=== PATIENT | male | born 1995 | race Two or more races ===

== ENCOUNTER 2018-04-11 13:56 | Inpatient (IN) | payer OTHER ==
[2018-04-11] VITALS (8 sets, daily range): BP systolic 119–152; BP diastolic 52–73
[~2018-04-11] VITALS: Ht 177.8 cm; Wt 64.4 kg
--- NOTE | 2018-04-11 14:10 | NUR ---
AAOX3, BB POLICE OFFICERS FROM [facility] FOR NAUSEA/VOMITING X TODAY THROAT PAIN DUE TO VOMITING. SKIN IS WARM AND DRY. AWAITING MD FOR EVAL.
[2018-04-11] MEDS ORDERED: ONDANSETRON HCL/PF 4 MG/2 ML VIAL ONE (14:26)
[2018-04-11] MEDS ORDERED: ONDANSETRON HCL/PF - ER 4 MG/2 ML VIAL IV ONE (14:30)
[2018-04-11] MEDS ORDERED: IV NS 0.9% 1,000 ML BAG IV ONE ×2 (14:30→15:30)
[2018-04-11 14:35] LABS: BASOPHILS % (AUTO) 0.3 % (0.0-2.0); EOSINOPHILS % (AUTO) 0.1 % (0.0-6.0); HEMATOCRIT 48 % (39-51); HEMOGLOBIN 15.9 g/dL (13.5-17.5); LYMPHOCYTES # (AUTO) 0.7 /CMM (0.8-4.8); LYMPHOCYTES % (AUTO) 5.9 % (20.0-44.0); MEAN CORPUSCULAR HGB CONC 33 g/dl (31.0-36.0); MEAN CORPUSCULAR VOLUME 84 fL (80-96); MONOCYTES # (AUTO) 0.4 /CMM (0.1-1.30); NEUTROPHILS # (AUTO) 10.6 /CMM (1.8-8.9); NEUTROPHILS % (AUTO) 90.7 % (43.0-81.0); PLATELET COUNT (AUTO) 312 /CMM (150-450); RDW COEFFICIENT OF VARIATION 12.4 (11.5-15.0); RED BLOOD CELL COUNT(AUTO) 5.66 MIL/uL (4.5-6.0); WHITE BLOOD COUNT (AUTO) 11.7 K/uL (4.3-11.0)
[2018-04-11 14:51] LABS: ALBUMIN 4.3 g/dL (3.4-5.0); BILIRUBIN,DIRECT 0.2 mg/dL (0.0-0.2); BILIRUBIN,TOTAL 0.8 mg/dL (0.2-1.0); CALCIUM, SERUM 10.1 mg/dL (8.5-10.1); CREATININE 1.3 mg/dL (0.6-1.3); POTASSIUM 5.6 mmol/L (3.5-5.1); TOTAL PROTEIN, SERUM 7.8 g/dL (6.4-8.2)
[2018-04-11] MEDS ORDERED: INSULIN REGULAR, HUMAN 100 UNIT/ML 10 ML VIAL ONE (15:54)
[2018-04-11 16:00] LABS: APPEARANCE,URINE Clear (CLEAR); BILIRUBIN,URINE SMALL (NEGATIVE); BLOOD, URINE Negative Ery/uL (NEGATIVE); COLOR,URINE Yellow (YELLOW); KETONES,URINE >=160 (NEGATIVE); LEUKOCYTE ESTERASE ,URINE Negative (NEGATIVE); NITRITE, URINE Negative (NEGATIVE); PH,URINE 5.5 (5.0-8.0); PROTEIN,URINE Negative (NEGATIVE); UGLUCOSE 500 MG/DL mg/dL (NEGATIVE); UROBILINOGEN,URINE 0.2 EU/dL (0.2)
[2018-04-11] MEDS ORDERED: INSULIN REGULAR, HUMAN 100 UNIT/ML 10 ML VIAL IV ONE (16:00)
--- NOTE | 2018-04-11 16:03 | NUR ---
CALLED [employer] SEAMLESS TUBE MILL OPERATOR WAS PAGED.
[2018-04-11 16:08] LABS: BACTERIA,URINE Few /HPF (None Seen); RBC,URINE 0-2 /HPF (0-2); SQUAMOUS EPITHELIAL CELL,UR Few /HPF (None Seen); WBC,URINE 0-2 /HPF (0-3)
[2018-04-11 16:14] LABS: ABG BASE EXCESS -12.7 mmol/L; ABG OXYGEN SATURATION 68.4 % (92.0-98.5); ABG PCO2 36.3 mmHg (35.0-45.0); ABG PH 7.211 (7.350-7.450); ABG PO2 41.4 mmHg (75.0-100.0); COHb 0.6 % (0.5-1.5); MetHb 0.6 % (0.0-1.5); O2Hb 67.6 % (94.0-97.0); SITE, ABG Right Brachial; VENT MODE, BG RA
[2018-04-11] MEDS ORDERED: INSULIN REGULAR, HUMAN 100 UNIT in IV NS 0.9% 99 ML IV STA ×2 (16:24)
--- NOTE | 2018-04-11 16:44 | NUR ---
Report given to [facility]
[2018-04-11] MEDS ORDERED: IV NS 0.9% 1,000 ML BAG IV PRN (17:00)
--- NOTE | 2018-04-11 17:07 | NUR ---
INSULIN DRIP WAS SENT TO ICU BY PHARMACY. SHERRY, COARSE WIRE DRAWER WILL START THE INSULIN DRIP.
--- NOTE | 2018-04-11 17:15 | NUR ---
RESEARCH ASSISTANT RECEIVED PATIENT AWAKE ON [place]N FROM ER ALERT ORIENTED X 3 ASKING FOR FOOD BECAUSE HE'S HUNGRY PLACED ON HIS COMFORTABLE POSITION STARTED INSULIN DRIP RIGHT AWAY 1 LITER BOLUS CONTINUED FROM ER MONITORED CLOSELY Addendum: 04/11/18 at 1846 by SHERRY CANNON RN PATIENT CAME FROM ASSISTED ESCORTED BY 2 POLICE OFFICERS HANDCUFFED TO THE BED MONITORED CLOSELY BY POLICE OFFICERS WELL SINUS TACHYCARDIA NOTED BLOOD PRESSURE ELEVATED NOTED
[2018-04-11] MEDS ORDERED: ONDANSETRON HCL/PF 4 MG/2 ML VIAL IVP PRN (17:30)
[2018-04-11] MEDS ORDERED: ACETAMINOPHEN 325 MG TABLET PO PRN (17:30)
[2018-04-11] MEDS ORDERED: INSULIN REGULAR, HUMAN 100 UNIT in IV NS 0.9% 99 ML IV PRN ×2 (17:30)
[2018-04-11] MEDS ORDERED: Z GUARD REMEDY 2 OZ OINT TP PRN (17:30)
[2018-04-11] MEDS ORDERED: MAG HYDROX/AL HYDROX/SIMETH 30 ML UDC PO PRN (17:30)
[2018-04-11] MEDS ORDERED: MAGNESIUM HYDROXIDE 30 ML UDC PO PRN (17:30)
[2018-04-11] MEDS ORDERED: DEXTROSE 50%-WATER 50 ML DISP.SYRIN IV PRN (18:00)
[2018-04-11] MEDS ORDERED: INSULIN REGULAR, HUMAN 100 UNIT/ML 3 ML VIAL SQ PRN (18:00)
[2018-04-11] MEDS ORDERED: *INSULIN REGULAR(HUMULIN R)HUM 100 UNIT/ML VIAL SQ PRN (18:00)
[2018-04-11] MEDS: BLOOD SUGAR DIAGNOSTIC 1 EACH STRIP IN SCH ×6 (18:01→23:06)
[2018-04-11] MEDS: IV NS 0.9% 1,000 ML IV PRN (18:22)
[2018-04-11] MEDS: ZOLPIDEM TARTRATE 5 MG TABLET PO PRN (21:01)
[2018-04-11] MEDS: HYDROCODONE/APAP 5/325MG 1 EACH TABLET PO PRN (21:02)
[2018-04-11 22:24] LABS: CALCIUM, SERUM 7.9 mg/dL (8.5-10.1); CREATININE 1.4 mg/dL (0.6-1.3); POTASSIUM 4.6 mmol/L (3.5-5.1)
[2018-04-12] VITALS (25 sets, daily range): BP systolic 90–153; BP diastolic 39–79
[2018-04-12] MEDS: BLOOD SUGAR DIAGNOSTIC 1 EACH STRIP IN SCH ×18 (00:18→21:07)
[2018-04-12] MEDS: IV NS 0.9% 1,000 ML IV PRN ×2 (00:56→11:49)
--- NOTE | 2018-04-12 01:26 | NUR ---
RN NOTES BLOOD SUGAR IS WITHIN RANGE OF 140-180 FOR 4 CONSECUTIVE TIMES. PER PROTOCOL, CONTINUE TO BLOOD SUGAR CHECK EVERY 2 HOURS IF BLOOD SUGAR IS > 140MG/DL.
[2018-04-12 02:30] LABS: BASOPHILS % (AUTO) 0.3 % (0.0-2.0); EOSINOPHILS % (AUTO) 0.2 % (0.0-6.0); HEMATOCRIT 43 % (39-51); HEMOGLOBIN 13.9 g/dL (13.5-17.5); LYMPHOCYTES # (AUTO) 1.2 /CMM (0.8-4.8); LYMPHOCYTES % (AUTO) 10.1 % (20.0-44.0); MEAN CORPUSCULAR HGB CONC 33 g/dl (31.0-36.0); MEAN CORPUSCULAR VOLUME 87 fL (80-96); MONOCYTES # (AUTO) 0.9 /CMM (0.1-1.30); MONOCYTES % (AUTO) 7.4 % (2.0-12.0); NEUTROPHILS # (AUTO) 9.8 /CMM (1.8-8.9); PLATELET COUNT (AUTO) 282 /CMM (150-450); RDW COEFFICIENT OF VARIATION 13.2 (11.5-15.0)
[2018-04-12 02:40] LABS: ALBUMIN 3.4 g/dL (3.4-5.0); BILIRUBIN,TOTAL 0.6 mg/dL (0.2-1.0); CALCIUM, SERUM 7.8 mg/dL (8.5-10.1); CREATININE 1.5 mg/dL (0.6-1.3); MAGNESIUM 1.6 mg/dL (1.8-2.4); PHOSPHORUS 3.2 mg/dL (2.5-4.9); POTASSIUM 4.3 mmol/L (3.5-5.1); TOTAL PROTEIN, SERUM 6.6 g/dL (6.4-8.2)
[2018-04-12 06:50] LABS: CALCIUM, SERUM 8.1 mg/dL (8.5-10.1); CREATININE 1.3 mg/dL (0.6-1.3); POTASSIUM 4.1 mmol/L (3.5-5.1)
--- NOTE | 2018-04-12 07:00 | NUR ---
RN NOTES RECEIVED PT ON BED, A/Ox4, ON RA ,RESPIRATION EVEN AND UNLABORED , NO SOB NOTED, ON TELE SR, HR IN 70'S , PT IS NPO AT THIS TIME, NS AT 150CC/HR AND INSULIN GTT AT 2 UNITS /HR RUNNING VIA R HAND IV SITE G 22, NO COMPLICATION NOTED, IV SITE CDI, SR UP x3, CALL LIGHT WITHIN EASY REACH , CALL LIGHT WITHIN EASY REACH, CONTINUE TO MONITOR PT CLSOELY .
[2018-04-12 07:58] LABS: ABG BASE EXCESS -8.6 mmol/L; ABG OXYGEN SATURATION 96.9 % (92.0-98.5); ABG PCO2 34.7 mmHg (35.0-45.0); ABG PH 7.303 (7.350-7.450); ABG PO2 100.5 mmHg (75.0-100.0); AaDO2 7.7 mmHg; COHb 0.3 % (0.5-1.5); MetHb 0.7 % (0.0-1.5); O2Hb 95.9 % (94.0-97.0); SITE, ABG Right Radial; VENT MODE, BG ROOM AIR
[2018-04-12] MEDS: Magnesium 1GM/D5W 100ML PREMIX 100 ML IV SCH ×2 (08:05→09:11)
[2018-04-12 10:46] LABS: CREATININE 1.3 mg/dL (0.6-1.3); POTASSIUM 3.7 mmol/L (3.5-5.1)
--- NOTE | 2018-04-12 13:00 | NUR ---
RN NOTES DR MISHRA NOTIFED REGARDING LAST 3 BLOOD SUGAR , NEW ORDER RECEIVED , CONTINUE TO MONITOR
[2018-04-12] MEDS: IV D5/0.45 NACL 1,000 ML IV PRN ×2 (13:20→20:56)
[2018-04-12] MEDS ORDERED: INSULIN GLARGINE, 100 UNIT/ML CARTRIDGE SQ ONE (13:30)
[2018-04-12 15:43] LABS: CALCIUM, SERUM 7.6 mg/dL (8.5-10.1); CREATININE 1.2 mg/dL (0.6-1.3); POTASSIUM 3.5 mmol/L (3.5-5.1)
--- NOTE | 2018-04-12 16:17 | NUR ---
RN NOTES DR BYRNE NOTIFED REGARDING BLOOD GLUCLOS RESULTS , NEW ORDER GIVEN , PT STABLE .
[2018-04-12] MEDS ORDERED: DEXTROSE 50%-WATER 50 ML DISP.SYRIN IV PRN (16:30)
[2018-04-12] MEDS: INSULIN REGULAR, HUMAN 100 UNIT/ML 3 ML VIAL SQ PRN (17:01)
--- NOTE | 2018-04-12 18:07 | NUR ---
RN NOTES VSS STABLE , PT DIAMOND ANY DISTRESS , IVF D51/2NS AT 150CC/HR RUNNING VIA R HAND IV SITE , SR UP x3, CALL LIGHT WITHIN EASY REACH, BED LOCKED AND IN LOWEST POSITION ,WILL ENDORSE TO VISCOSE CELLAR WORKER NURSE FOR SOHEILA
--- NOTE | 2018-04-12 19:00 | NUR ---
RN INITIAL NOTES RECEIVED THE PATIENT AWAKE ON BED, A/O X4. ON ROOM AIR, SATURATING WELL, NO S/S OF RESP DISTRESS. SR ON THE MONITOR, HR 60-70'S. PT IS CONTINENT, ABLE TO USE THE URINAL. RIGHT HAND 22G WITH D5 1/2NS @ 150MLS/HR, NO S/S OF INFILTRATION/INFECTION, DRESSING CDI. BED LOW AND LOCKED, SIDERAILS UP, CALL LIGHT WITHIN REACH. WILL MONITOR
[2018-04-12 19:44] LABS: CALCIUM, SERUM 7.6 mg/dL (8.5-10.1); CREATININE 1.2 mg/dL (0.6-1.3); POTASSIUM 3.3 mmol/L (3.5-5.1)
--- NOTE | 2018-04-12 20:58 | NUR ---
RN NOTES NOTIFIED ON-CALL DR VIZCARRA THAT PATIENT POTASSIUM IS 3.3; HE ORDERED 40MEQ POTASSIUM PO ONE TIME TO BE GIVEN.
[2018-04-12] MEDS ORDERED: POTASSIUM CHLORIDE 20 MEQ TAB.PRT.SR PO ONE (21:00)
[2018-04-12] MEDS: NICOTINE PATCH (14MG) 14 MG PATCH.TD24 TD SCH (21:09)
[2018-04-12] MEDS: ZOLPIDEM TARTRATE 5 MG TABLET PO PRN (21:09)
[2018-04-12] MEDS: *INSULIN REGULAR(HUMULIN R)HUM 100 UNIT/ML VIAL SQ PRN (21:09)
[2018-04-12 23:29] LABS: CALCIUM, SERUM 7.5 mg/dL (8.5-10.1); CREATININE 1.2 mg/dL (0.6-1.3); POTASSIUM 3.6 mmol/L (3.5-5.1)
[2018-04-12 23:31] LABS: MAGNESIUM 1.8 mg/dL (1.8-2.4); PHOSPHORUS 2.4 mg/dL (2.5-4.9)
[2018-04-13] VITALS (21 sets, daily range): BP systolic 102–142; BP diastolic 53–87
[2018-04-13] MEDS: IV D5/0.45 NACL 1,000 ML IV PRN ×3 (03:48→16:12)
[2018-04-13 04:27] LABS: POTASSIUM 3.7 mmol/L (3.5-5.1)
--- NOTE | 2018-04-13 06:00 | NUR ---
RN CLOSING NOTES PT REMAINS STABLE OF THE MOMENT. ALL DUE MEDS GIVEN. WILL ENDORSE SOHEILA TO AM RN
--- NOTE | 2018-04-13 07:00 | NUR ---
RN NOTE RECEIVED PT ON BED, A/Ox4, ON RA, RESPIRATION EVEN AND UNLABORED, DIAMOND ANY DISTRESS AT THIS TIME , ON TELE HR IN 80'S ,SR , R HAND IV SITE G 22 CDI WITH D51/2NS AT 150CC/HR RUNNING, PT IS ABLE TO USE URINAL , SR UP x3, CALL LIGHT WITHIN EASY REACH, BED LOCKED AND IN LOWEST POSITION, CONTINUE TO MONITOR PT CLOSELY.
[2018-04-13] MEDS: BLOOD SUGAR DIAGNOSTIC 1 EACH STRIP IN SCH ×2 (07:30→11:35)
[2018-04-13] MEDS: HYDROCODONE/APAP 5/325MG 1 EACH TABLET PO PRN (07:48)
[2018-04-13] MEDS: NICOTINE PATCH (14MG) 14 MG PATCH.TD24 TD SCH (08:16)
[2018-04-13] MEDS: *INSULIN REGULAR(HUMULIN R)HUM 100 UNIT/ML VIAL SQ PRN ×2 (09:08→21:06)
[2018-04-13] MEDS: INSULIN REGULAR, HUMAN 100 UNIT/ML 3 ML VIAL SQ PRN (11:34)
--- NOTE | 2018-04-13 12:00 | NUR ---
RN NOTES YANELIS SOIL CONSERVATION AIDE NOTIFED REGARDING URINE OUT PUT. CONTINUE TO MONITOR.
[2018-04-13] MEDS ORDERED: CARB200T PO (12:20)
[2018-04-13] MEDS ORDERED: ARIP30TA3 PO (12:20)
[2018-04-13] MEDS ORDERED: BENA20TA9 PO (12:20)
[2018-04-13] MEDS ORDERED: RISP0.5T20 PO (12:20)
[2018-04-13] MEDS ORDERED: INSU100V27 SQ (12:20)
[2018-04-13] MEDS ORDERED: DIPH50CA4 PO (12:20)
[2018-04-13] MEDS ORDERED: ALBU18HF2 INH (12:20)
[2018-04-13] MEDS ORDERED: LAMO100T2 PO (12:20)
[2018-04-13] MEDS ORDERED: IBUP-1955 PO (12:20)
[2018-04-13] MEDS ORDERED: BLOO-668 IN (12:20)
[2018-04-13] MEDS ORDERED: GUAI-717 PO (12:20)
[2018-04-13] MEDS ORDERED: DOCU250C14 PO (12:20)
[2018-04-13] MEDS ORDERED: CYCL5TAB PO (12:20)
[2018-04-13] MEDS ORDERED: INSU100I26 SQ (12:20)
--- NOTE | 2018-04-13 13:00 | NUR ---
RN NOTES PT STABLE , OUT OF BED TO VOID AND USES URINAL , VSS STABLE , NO DISTRESS NOTED .
--- NOTE | 2018-04-13 15:12 | NUR ---
RN NOTES PT STATED HE FEELS SHAKY , BG=67, ORANG JUICE GIVEN , YANELIS DETAIL SERGEANT NOTIFED , CONTINUE TO MONITOR
[2018-04-13] MEDS ORDERED: IBUPROFEN 600 MG TABLET PO PRN (15:30)
[2018-04-13] MEDS ORDERED: ALBUTEROL FS 2.5 MG/3 ML VIAL.NEB NEB PRN (15:30)
--- NOTE | 2018-04-13 15:30 | NUR ---
RN NOTES BG =172, MAJOR HILARIO AUTOMOTIVE BUYER NOTIFED, NO COVERAGE GIVEN PER AUTOMOTIVE BUYER ORDER AT THIS TIME , PT IS A/OX4, NO DISTRESS NOTED, CONTINUE TO MONITOR .
[2018-04-13 15:44] LABS: URINE SODIUM, RANDOM 91 mmol/l (40-220)
[2018-04-13] MEDS ORDERED: GUAIFENESIN/D-METHORPHAN HB 5 ML UDC PO PRN (16:00)
[2018-04-13] MEDS: risperiDONE 0.25 MG TABLET PO SCH (16:07)
[2018-04-13] MEDS: LamoTRIgine 100 MG TABLET PO SCH (16:07)
[2018-04-13] MEDS ORDERED: DEXTROSE 50%-WATER 50 ML DISP.SYRIN IV PRN (16:30)
[2018-04-13] MEDS ORDERED: LORAZEPAM INJ 2 MG/ML VIAL IV PRN (16:30)
--- NOTE | 2018-04-13 16:30 | NUR ---
RN NOTES REPORT GIVEN TO HELEN MARCANO , AND PT TRANSFERRED TO ROOM 114-2 GRIFFIN STATUS IN STABLE CONDITION WITH ALL BELONGINGS .
--- NOTE | 2018-04-13 16:40 | NUR ---
RN NOTES RECEIVED PT FROM ICU. A&0X3, ON ROOM AIR NO SOB OR DISTRESS NOTED. SR ON THE TELE PABLO WITH PVCS HR 82. RH 22G IV SITE INTACT WITH D5 1/2NS AT 150ML/HR. BED LOCKED AND IN LOWEST POSITION, CALL LIGHT WITHIN REACH, SIDE RAILS UPX3, WILL CONT TO PABLO.
[2018-04-13] MEDS ORDERED: CYCLOBENZAPRINE 10 MG TABLET PO PRN (17:00)
[2018-04-13] MEDS: BLOOD SUGAR DIAGNOSTIC 1 EACH STRIP VI SCH ×2 (17:15→21:05)
[2018-04-13 17:42] LABS: OSMOLALITY,URINE 624 mOS/kg (340-1090)
[2018-04-13 17:56] LABS: BASOPHILS % (AUTO) 0.3 % (0.0-2.0); EOSINOPHILS % (AUTO) 1.9 % (0.0-6.0); HEMATOCRIT 41 % (39-51); HEMOGLOBIN 13.9 g/dL (13.5-17.5); LYMPHOCYTES # (AUTO) 0.6 /CMM (0.8-4.8); LYMPHOCYTES % (AUTO) 11.7 % (20.0-44.0); MEAN CORPUSCULAR HGB CONC 34 g/dl (31.0-36.0); MEAN CORPUSCULAR VOLUME 86 fL (80-96); MONOCYTES # (AUTO) 0.4 /CMM (0.1-1.30); MONOCYTES % (AUTO) 8.8 % (2.0-12.0); NEUTROPHILS # (AUTO) 3.9 /CMM (1.8-8.9); NEUTROPHILS % (AUTO) 77.3 % (43.0-81.0); PLATELET COUNT (AUTO) 239 /CMM (150-450); RDW COEFFICIENT OF VARIATION 12.9 (11.5-15.0); RED BLOOD CELL COUNT(AUTO) 4.81 MIL/uL (4.5-6.0); WHITE BLOOD COUNT (AUTO) 5.1 K/uL (4.3-11.0)
[2018-04-13] MEDS: CARBAMAZEPINE 200 MG TABLET PO SCH (17:57)
[2018-04-13 18:08] LABS: CALCIUM, SERUM 8.3 mg/dL (8.5-10.1); POTASSIUM 4.1 mmol/L (3.5-5.1)
--- NOTE | 2018-04-13 20:00 | NUR ---
RN GRIFFIN - NOTES - RECEIVED PT AWAKE IN BED, A/O X4. ON ROOM AIR, SATURATING WELL, NO S/S OF RESP DISTRESS. SR ON THE MONITOR, HR 60-70'S. PT IS CONTINENT, ABLE TO USE THE URINAL. RIGHT HAND 22G WITH D5 1/2NS @ 150MLS/HR, NO S/S OF INFILTRATION/INFECTION, DRESSING CDI. BED LOW AND LOCKED, SIDERAILS UP, CALL LIGHT WITHIN REACH. WILL MONITOR
[2018-04-13] MEDS: diphenhydrAMINE HCL 50 MG CAPSULE PO SCH (21:04)
[2018-04-14] VITALS: BP 124/53
[2018-04-14] MEDS: IV D5/0.45 NACL 1,000 ML IV PRN (00:09)
[2018-04-14] MEDS: INSULIN REGULAR, HUMAN 100 UNIT/ML 3 ML VIAL SQ PRN ×4 (03:59→17:41)
[2018-04-14 04:00] VITALS: BP 136/75
[2018-04-14] MEDS: HYDROCODONE/APAP 5/325MG 1 EACH TABLET PO PRN ×3 (04:08→14:55)
--- NOTE | 2018-04-14 04:20 | NUR ---
PT COMPLAINING OF SHIVERING, BUT DOES NOT FEEL HOT OR COLD. BLOOD GLUCOSE IS 567, VETERINARY PARASITOLOGIST LALA NOTIFIED, PT COVERED WITH 15 UNITS REGULAR INSULIN. WILL RECHECK IN 30 MINUTES
--- NOTE | 2018-04-14 05:00 | NUR ---
BLOOD GLUCOSE 479, 1 HOUR AFTER 15 UNITS REGULAR INSULIN GIVEN, PT STATES THAT HE FEELS BETTER. HIS RIGHT HAND IV WAS INFILTRATED, TENDER AND BURNING, I REMOVED IT AND PLACED NEW 20G IV IN LEFT HAND AND GAVE HIM NORCO FOR PAIN. DESIGN AND SALES CONSULTANT LALA NOTIFIED OF BLOOD GLUCOSE, WILL CHECK BMP AT 0600 AND CONTINUE TO MONITOR
[2018-04-14 06:43] LABS: CREATININE 1.1 mg/dL (0.6-1.3); POTASSIUM 4.1 mmol/L (3.5-5.1)
--- NOTE | 2018-04-14 07:12 | NUR ---
RN INITIAL NOTES: REC'D PT AWAKE ON BED, NOT IN ANY DISTRESS, A/O X 4, DENIES ANY PAIN/DISCOMFORT AT THIS TIME. ON ROOM AIR, NO SOB. ON TELEMONITOR, SR W/ PVC HR 69 BPM. HAS L HAND G20 SL, FLUSHING WELL, NO S/SX OF INFECTION NOTED. PROVIDED COMFORT & SAFETY MEASURES. BED KEPT LOW & IN LOCKED POS. CALL LIGHT PLACED W/IN REACH. WILL CONT TO MONITOR & ATTEND PT NEEDS.
[2018-04-14] MEDS: BLOOD SUGAR DIAGNOSTIC 1 EACH STRIP VI SCH ×4 (07:46→21:19)
[2018-04-14 08:00] VITALS: BP 129/75
[2018-04-14] MEDS: DOCUSATE SODIUM 250 MG CAPSULE PO SCH (08:18)
[2018-04-14] MEDS: BENAZEPRIL HCL 20 MG TABLET PO SCH (08:19)
[2018-04-14] MEDS: LamoTRIgine 100 MG TABLET PO SCH ×3 (08:19→16:59)
[2018-04-14] MEDS: risperiDONE 0.25 MG TABLET PO SCH ×2 (08:19→17:00)
[2018-04-14] MEDS: NICOTINE PATCH (14MG) 14 MG PATCH.TD24 TD SCH (08:19)
[2018-04-14] MEDS: CARBAMAZEPINE 200 MG TABLET PO SCH ×2 (08:19→17:04)
[2018-04-14] MEDS: ARIPIPRAZOLE 5 MG TABLET PO SCH (09:05)
--- NOTE | 2018-04-14 11:00 | NUR ---
RN NOTES: PT SEEN & EXAMINED BY BRITNI GONSALVES. PER BRITNI PT MAY BE DC TOM. MAR LUTZ. Addendum: 04/14/18 at 1734 by DANIEL BUTT RN ADDENDUM: SAVANAH RYDER MAY DC CURRENT IVF.
[2018-04-14 12:00] VITALS: BP 136/83
[2018-04-14 16:00] VITALS: BP 126/64
--- NOTE | 2018-04-14 18:31 | NUR ---
RN CLOSING NOTES: NO ACUTE CHANGES NOTED W/IN SHIFT. PT TOLERATED ROOM AIR, NO SOB. ON TELEMONITOR, STILL SR W/ PVC. L HAND G20 SL, KEPT PATENT & INTACT W/ NO S/SX OF INFECTION NOTED. BLOOD SUGAR MONITORED CLOSELY. KEPT WELL RESTED. NEEDS ATTENDED. BED KEPT LOW & IN LOCKED POS. CALL LIGHT PLACED W/IN REACH. WILL ENDORSE TO PM RN FOR SOHEILA.
[2018-04-14 20:00] VITALS: BP 126/74
[2018-04-14] MEDS: *INSULIN REGULAR(HUMULIN R)HUM 100 UNIT/ML VIAL SQ PRN (21:21)
[2018-04-14] MEDS: diphenhydrAMINE HCL 50 MG CAPSULE PO SCH (21:41)
[2018-04-14] MEDS ORDERED: INSULIN GLARGINE, 100 UNIT/ML CARTRIDGE SQ SCH (22:00)
[2018-04-15] VITALS: BP 110/76
[2018-04-15 04:00] VITALS: BP 108/71
--- NOTE | 2018-04-15 06:11 | NUR ---
LABORER SHIPYARD NOTES AWAKE & RESPONSIVE. NOT IN ANY DISTRESS. NO SOB NOTED. DENIES ANY PAIN OR DISCOMFORT AT THIS TIME. ON TELE SR @ 95 WITH IV-HL PATENT & INTACT. CALL LIGHT WITHIN REACH. BED IN LOWEST POSITION. SR UP X2 FOR SAFETY. WILL ENDORSE TO NEXT SHIFT.
[2018-04-15 06:31] LABS: BASOPHILS % (AUTO) 0.6 % (0.0-2.0); EOSINOPHILS % (AUTO) 6.6 % (0.0-6.0); HEMATOCRIT 44 % (39-51); HEMOGLOBIN 14.3 g/dL (13.5-17.5); LYMPHOCYTES # (AUTO) 0.8 /CMM (0.8-4.8); LYMPHOCYTES % (AUTO) 21.8 % (20.0-44.0); MEAN CORPUSCULAR HGB CONC 33 g/dl (31.0-36.0); MEAN CORPUSCULAR VOLUME 88 fL (80-96); MONOCYTES # (AUTO) 0.5 /CMM (0.1-1.30); MONOCYTES % (AUTO) 12.4 % (2.0-12.0); NEUTROPHILS # (AUTO) 2.2 /CMM (1.8-8.9); NEUTROPHILS % (AUTO) 58.6 % (43.0-81.0); PLATELET COUNT (AUTO) 224 /CMM (150-450); RDW COEFFICIENT OF VARIATION 13.1 (11.5-15.0); RED BLOOD CELL COUNT(AUTO) 4.98 MIL/uL (4.5-6.0); WHITE BLOOD COUNT (AUTO) 3.7 K/uL (4.3-11.0)
[2018-04-15] MEDS: BLOOD SUGAR DIAGNOSTIC 1 EACH STRIP VI SCH ×3 (06:37→18:00)
[2018-04-15 08:00] VITALS: BP_SYST 145; BP_SYST 152; BP_DIAS 71; BP_DIAS 72
--- NOTE | 2018-04-15 08:00 | NUR ---
ms rn received on bed,awake,alert,oriented x3,not in any form of distress, respirations even and ulabored,no sob noted, lungs are clear,abdomen soft,positive bowel sounds, denies pain at this time, will monitor patient's condition.
--- NOTE | 2018-04-15 08:10 | NUR ---
ms rn refused bs check at this time, patient is somewhat noncompliant.
[2018-04-15] MEDS: NICOTINE PATCH (14MG) 14 MG PATCH.TD24 TD SCH (09:00)
--- NOTE | 2018-04-15 09:00 | NUR ---
ms chong breakfast served served,due meds given,tolerated well.
[2018-04-15] MEDS: BENAZEPRIL HCL 20 MG TABLET PO SCH (09:22)
[2018-04-15] MEDS: risperiDONE 0.25 MG TABLET PO SCH ×2 (09:23→16:25)
[2018-04-15] MEDS: CARBAMAZEPINE 200 MG TABLET PO SCH ×2 (09:23→16:25)
[2018-04-15] MEDS: DOCUSATE SODIUM 250 MG CAPSULE PO SCH (09:23)
[2018-04-15] MEDS: LamoTRIgine 100 MG TABLET PO SCH ×3 (09:23→16:25)
--- NOTE | 2018-04-15 11:00 | NUR ---
ms rn patient went down for smoke.
[2018-04-15 12:00] VITALS: BP 125/69
--- NOTE | 2018-04-15 12:00 | NUR ---
ms rn bs - 410, repeated 490, - rom muniz aware w/ order to give coverage at this time. 15 regular insulin sg given as ordered.will recheck at 530 pm, no s/s of hyperglycemia.
--- NOTE | 2018-04-15 13:00 | NUR ---
ms rn was seen by dennys cueto np/ order to be discharge today.
[2018-04-15] MEDS: INSULIN REGULAR, HUMAN 100 UNIT/ML 3 ML VIAL SQ PRN ×2 (13:04→17:50)
[2018-04-15] MEDS: ARIPIPRAZOLE 5 MG TABLET PO SCH (13:16)
[2018-04-15 16:00] VITALS: BP 132/74
[2018-04-15 18:56] VITALS: BP 132/74
--- NOTE | 2018-04-15 19:10 | NUR ---
MS ENTRY LEVEL MARKETING REPRESENTATIVE INSTRUCTIONS GIVEN AND UNDERSTOOD, WENT HOME ACCOMPANIED BY MOM.
== END 2018-04-15 19:10 | disposition home or self-care (01) | DRG 420 ==
LOC: ER 13:57 → ICU 16:14 → TELE-TD 04-13 16:17 → TELE1 04-14 11:25
PROVIDERS: ADMIT Internal Medicine; ATTEND Internal Medicine
DX: E10.10 Type 1 diabetes mellitus with ketoacidosis without coma (principal); N17.0 Acute kidney failure with tubular necrosis; I10 Essential (primary) hypertension; F41.9 Anxiety disorder, unspecified; E87.6 Hypokalemia; E87.1 Hypo-osmolality and hyponatremia; G40.909 Epilepsy, unspecified, not intractable, without status epilepticus; Z79.4 Long term (current) use of insulin; G80.9 Cerebral palsy, unspecified; F17.200 Nicotine dependence, unspecified, uncomplicated; Z91.14 Patient's other noncompliance with medication regimen; Z79.899 Other long term (current) drug therapy
CPT/HCPCS: 36415; 36600; 71045-TC; 80048-TC; 80053-TC; 80061-TC; 80076-TC; 80156-TC; 81000-TC; 82010-TC; 82803-TC; 82947-TC; 82962-TC; 83690-TC; 83735-TC; 83935-TC; 84100-TC; 84300-TC; 85025-TC; 87081-TC; A4606; J1815; J2405; J3475; J3490; J7030; J7040; Q0163; Z7610